=== PATIENT | female | born 1960 | race African-American/Black ===

== ENCOUNTER 2021-01-05 16:28 | Inpatient (IN) | payer MEDICAID ==
[~2021-01-05] VITALS: Ht 165.1 cm; Wt 53.4 kg
--- NOTE | 2021-01-05 16:31 | NUR ---
BIBA FOR PAIN ON LEFT HIP AFTER INJURY WHILE WALKING. PT HAS PAGET'S DISEASE. PAIN 04/21. PT TOOK 1 10MG NORCO AND SOMA 40 MINUTES AGO. PT PLACED ON VITALS MONTITORS. FALL PRECAUTIONS IN PLACE.
[2021-01-05] MEDS ORDERED: ONDANSETRON 2MG/ML, 2ML ONE (16:54)
[2021-01-05] MEDS ORDERED: HYDROmorphone 1 MG/ML, 1ML INJ ONE ×2 (16:54→17:49)
[2021-01-05] MEDS ORDERED: ONDANSETRON 2MG/ML, 2ML IVPush ONE (17:00)
[2021-01-05] MEDS ORDERED: HYDROmorphone 1 MG/ML, 1ML INJ IV ONE ×2 (17:00→18:00)
[2021-01-05] MEDS ORDERED: SODIUM CHLORIDE FLUSH 10ML SYR IVF ONE (17:00)
[2021-01-05 17:27] LABS: BASOPHILS % (AUTO) 1 % (0-1); EOSINOPHILS % (AUTO) 1 % (1-7); LYMPHOCYTES % (AUTO) 21 % (22-44); MEAN CORPUSCULAR HEMOGLOBIN 30.7 pg (27.0-34.8); MEAN PLATELET VOLUME 6.8 fL (7.4-10.4); MONOCYTES % (AUTO) 7 % (2-9); NEUTROPHILS % (AUTO) 70 % (42-75); PLATELET COUNT 341 x10^3/uL (130-400); RED BLOOD COUNT 3.71 x10^6/uL (3.82-5.3); RED CELL DISTRIBUTION WIDTH 13.4 % (9.6-15.2)
[2021-01-05 17:29] LABS: ALBUMIN 3.5 g/dL (3.4-5.0); ANION GAP 7 mmol/L (5-15); CHLORIDE 108 mmol/L (98-107); CREATININE 0.67 mg/dL (0.55-1.02)
--- NOTE | 2021-01-05 17:40 | NUR ---
SHORTS ON PATIENT WERE CUT PRIOR TO ARRIVAL AND NEEDED TO BE COMPLETELY CUT OFF PER RADIOLOGY PT COULD NOT TOLERATE REMOVING SHORTS DOWN OFF THE LEGS. KEESHA FROM XRAY ASSISTED IN REMOVING SHORTS FROM PATIENT BY THIS RN COMPLETING THE PROCESS OF CUTTING HER SHORTS.
[2021-01-05] MEDS ORDERED: ALEN70TA77 PO (18:17)
[2021-01-05] MEDS ORDERED: CARI350T PO (18:17)
[2021-01-05] MEDS ORDERED: IBUP-1223 PO (18:17)
[2021-01-05] MEDS ORDERED: LORA-247 PO (18:17)
[2021-01-05] MEDS ORDERED: HYDR-3248 PO (18:17)
[2021-01-05] MEDS ORDERED: OXYcodone/APAP 10/325MG TABLET ONE (18:43)
--- NOTE | 2021-01-05 18:44 | NUR ---
MEDICATED WITH PERCOCET 10MG PER HOSPITALIST ORDER. MD AT BEDSIDE FOR EVAL.
--- NOTE | 2021-01-05 18:55 | NUR ---
REPORT GIVEN TO [facility] VILLALOBOS.
[2021-01-05] MEDS ORDERED: DOCUSATE 100 MG CAPSULE PO PRN (19:00)
[2021-01-05] MEDS ORDERED: ONDANSETRON 2MG/ML, 2ML IVPush PRN (19:00)
[2021-01-05] MEDS ORDERED: OXYcodone/APAP 10/325MG TABLET PO ONE (19:00)
[2021-01-05] MEDS ORDERED: BACLOFEN 10 MG TABLET PO PRN (19:00)
[2021-01-05] MEDS ORDERED: ENALAPRILAT 1.25 MG/ML, 2ML IVPush PRN (19:00)
[2021-01-05] MEDS ORDERED: ACETAMINOPHEN 325 MG TABLET PO PRN (19:00)
[2021-01-05] MEDS ORDERED: GUAIFENESIN/DM 200-20MG, 10ML UDC PO PRN (19:00)
[2021-01-05] MEDS ORDERED: ZOLPIDEM 5MG TABLET PO PRN (19:00)
[2021-01-05 19:28] VITALS: BP 167/100
[2021-01-05] MEDS ORDERED: DIAZEPAM 5 MG TABLET PO PRN (20:00)
[2021-01-05] MEDS: HYDROcodone/APAP 10/325 MG TABLET PO SCH (20:46)
[2021-01-05] MEDS: FAMOTIDINE 20 MG TABLET PO SCH (20:46)
[2021-01-05] MEDS: HYDROmorphone 2 MG/ML, 1ML IVPush PRN ×2 (20:46→23:50)
[2021-01-05] MEDS: CARISOPRODOL 350 MG TABLET PO SCH (20:46)
[2021-01-05] MEDS: LACTATED RINGERS 1,000 ML IV SCH (20:56)
[2021-01-06 02:42] VITALS: BP 126/80
[2021-01-06] MEDS: HYDROmorphone 2 MG/ML, 1ML IVPush PRN (02:57)
[2021-01-06] MEDS: OXYcodone IR 5MG TABLET PO PRN (02:58)
[2021-01-06 05:45] LABS: BASOPHILS % (AUTO) 0 % (0-1); EOSINOPHILS % (AUTO) 1 % (1-7); LYMPHOCYTES % (AUTO) 28 % (22-44); MEAN CORPUSCULAR HEMOGLOBIN 30.6 pg (27.0-34.8); MEAN CORPUSCULAR HGB CONC 33.9 g/dL (32.4-35.8); MEAN PLATELET VOLUME 7.4 fL (7.4-10.4); MONOCYTES % (AUTO) 8 % (2-9); NEUTROPHILS % (AUTO) 63 % (42-75); PLATELET COUNT 334 x10^3/uL (130-400); RED BLOOD COUNT 3.73 x10^6/uL (3.82-5.3); RED CELL DISTRIBUTION WIDTH 13.8 % (9.6-15.2)
[2021-01-06 05:50] LABS: PROTHROMBIN TIME 10.7 Seconds (9.6-11.5)
[2021-01-06 05:52] LABS: CALCIUM 8.6 mg/dL (8.5-10.1); CHLORIDE 109 mmol/L (98-107)
[2021-01-06] MEDS: DIAZEPAM 5 MG/ML, 2ML IV PRN (06:06)
[2021-01-06 06:22] LABS: % IRON SATURATION 38 % (20-55); ANION GAP 6 mmol/L (5-15); CREATININE 0.56 mg/dL (0.55-1.02); IRON LEVEL 88 mcg/dL (50-170); TOTAL IRON BINDING CAPACITY 233 mcg/dL (250-450)
[2021-01-06] MEDS: HYDROcodone/APAP 10/325 MG TABLET PO SCH ×4 (07:21→21:39)
[2021-01-06] MEDS: IBUPROFEN 800 MG TABLET PO SCH (07:21)
[2021-01-06] MEDS: LORATADINE 10 MG TABLET PO SCH (07:22)
[2021-01-06] MEDS: FAMOTIDINE 20 MG TABLET PO SCH ×2 (07:22→21:39)
[2021-01-06] MEDS: CARISOPRODOL 350 MG TABLET PO SCH ×3 (07:22→21:38)
[2021-01-06 08:37] VITALS: BP 108/65
[2021-01-06] MEDS: LACTATED RINGERS 1,000 ML IV SCH (10:58)
[2021-01-06] MEDS ORDERED: MIDAZOLAM 1 MG/ML, 2ML ONE (12:16)
[2021-01-06] MEDS ORDERED: FENTANYL PF 250 MCG/5ML ONE (12:17)
[2021-01-06] MEDS ORDERED: KETAMINE 50 MG/ML, 10ML ONE (12:40)
[2021-01-06] MEDS ORDERED: HALOPERIDOL 5 MG/ML IV PRN (13:00)
[2021-01-06] MEDS ORDERED: FENTANYL PF 100 MCG/2ML IV PRN (13:00)
[2021-01-06] MEDS ORDERED: ONDANSETRON 2MG/ML, 2ML IVPush PRN (13:00)
[2021-01-06] MEDS ORDERED: LABETALOL 5MG/ML, 20ML IV PRN (13:00)
[2021-01-06] MEDS ORDERED: EPHEDRINE 50 MG/ML, 1ML IM PRN (13:00)
[2021-01-06] MEDS ORDERED: MEPERIDINE/PF 25MG/0.5ML IVPush PRN (13:00)
[2021-01-06] MEDS ORDERED: OXYcodone 5 MG/5 ML ORAL.SOL UDC PO PRN (13:00)
[2021-01-06] MEDS ORDERED: hydrALAzine 20 MG/ML, 1ML IV PRN (13:00)
[2021-01-06] MEDS ORDERED: LORazepam 2 MG/ML, 1ML IVPush PRN (13:00)
[2021-01-06] MEDS ORDERED: ACETAMINOPHEN 325 MG TABLET PO PRN (13:00)
[2021-01-06] MEDS ORDERED: PROMETHAZINE 25 MG/ML, 1ML IVPush PRN (13:00)
[2021-01-06] MEDS ORDERED: HYDROmorphone 1 MG/ML, 1ML INJ IVPush PRN (13:00)
[2021-01-06] MEDS ORDERED: EPHEDRINE 50 MG/ML, 1ML IVPush PRN (13:00)
[2021-01-06] MEDS ORDERED: METHOCARBAMOL 1,000 MG in DEXTROSE 5% 100 ML IV PRN (13:00)
[2021-01-06] MEDS ORDERED: KETOROLAC 30 MG/1 ML ONE (13:13)
[2021-01-06] MEDS ORDERED: CEFAZOLIN 1,000 MG ONE (13:13)
[2021-01-06] MEDS ORDERED: SUCCINYLCHOLINE 20 MG/ML, 10ML ONE ×2 (13:13)
[2021-01-06] MEDS ORDERED: PROPOFOL 10 MG/ML, 20ML ONE (13:13)
[2021-01-06] MEDS ORDERED: DEXAMETHASONE 4 MG/ML, 1ML ONE (13:13)
[2021-01-06] MEDS ORDERED: ONDANSETRON 2MG/ML, 2ML ONE (13:13)
[2021-01-06] MEDS ORDERED: MEPERIDINE/PF 100 MG/ML ONE (14:31)
[2021-01-06] MEDS ORDERED: ALENDRONATE 70 MG TABLET PO SCH (15:00)
[2021-01-06] MEDS ORDERED: FENTANYL PF 100 MCG/2ML ONE (15:02)
[2021-01-06] MEDS ORDERED: ACETAMINOPHEN 650 MG/20.3 ML UDC ONE (15:13)
[2021-01-06] MEDS ORDERED: OXYcodone 5 MG/5 ML ORAL.SOL UDC ONE (15:13)
[2021-01-06 18:49] VITALS: BP 99/69
[2021-01-06] MEDS: CEFAZOLIN PMX 1GM/50ML 50 ML IV SCH (21:54)
[2021-01-07 01:24] VITALS: BP 102/63
[2021-01-07] MEDS: LACTATED RINGERS 1,000 ML IV SCH ×2 (01:47→12:20)
[2021-01-07 05:16] LABS: BASOPHILS % (AUTO) 0 % (0-1); EOSINOPHILS % (AUTO) 0 % (1-7); LYMPHOCYTES % (AUTO) 19 % (22-44); MEAN CORPUSCULAR HEMOGLOBIN 31.1 pg (27.0-34.8); MEAN CORPUSCULAR HGB CONC 34.4 g/dL (32.4-35.8); MEAN PLATELET VOLUME 7.2 fL (7.4-10.4); MONOCYTES % (AUTO) 11 % (2-9); NEUTROPHILS % (AUTO) 71 % (42-75); PLATELET COUNT 271 x10^3/uL (130-400); RED BLOOD COUNT 3.17 x10^6/uL (3.82-5.3); RED CELL DISTRIBUTION WIDTH 13.5 % (9.6-15.2)
[2021-01-07 05:18] LABS: ANION GAP 4 mmol/L (5-15); CALCIUM 8.3 mg/dL (8.5-10.1); CHLORIDE 110 mmol/L (98-107)
[2021-01-07 05:19] LABS: CREATININE 0.54 mg/dL (0.55-1.02)
[2021-01-07] MEDS: CEFAZOLIN PMX 1GM/50ML 50 ML IV SCH (05:54)
[2021-01-07] MEDS: HYDROcodone/APAP 10/325 MG TABLET PO SCH ×4 (05:54→21:21)
[2021-01-07] MEDS: ENOXAPARIN 40 MG/0.4 ML SQ SCH (05:54)
[2021-01-07 07:20] VITALS: BP 109/69
[2021-01-07] MEDS ORDERED: METHOCARBAMOL 750 MG TABLET PO PRN (08:00)
[2021-01-07] MEDS: IBUPROFEN 800 MG TABLET PO SCH (08:14)
[2021-01-07] MEDS: CARISOPRODOL 350 MG TABLET PO SCH ×3 (08:14→21:21)
[2021-01-07] MEDS: FAMOTIDINE 20 MG TABLET PO SCH ×2 (08:14→21:21)
[2021-01-07] MEDS: LORATADINE 10 MG TABLET PO SCH (08:14)
[2021-01-07] MEDS: OXYcodone IR 5MG TABLET PO PRN ×2 (08:21→17:16)
[2021-01-07 13:30] VITALS: BP 108/70
[2021-01-07] MEDS: DIAZEPAM 5 MG/ML, 2ML IV PRN (15:52)
[2021-01-07] MEDS ORDERED: MAGNESIUM HYDROXIDE 8%, 30ML UDC ONE (17:14)
[2021-01-07] MEDS ORDERED: MAGNESIUM HYDROXIDE 8%, 30ML UDC PO PRN (17:30)
[2021-01-07 18:40] VITALS: BP 94/59
[2021-01-08 01:45] VITALS: BP 95/61
[2021-01-08] MEDS: LACTATED RINGERS 1,000 ML IV SCH ×2 (05:10→18:30)
[2021-01-08] MEDS: ENOXAPARIN 40 MG/0.4 ML SQ SCH (05:39)
[2021-01-08] MEDS: HYDROcodone/APAP 10/325 MG TABLET PO SCH ×4 (05:40→21:01)
[2021-01-08] MEDS: OXYcodone IR 5MG TABLET PO PRN ×3 (06:45→17:39)
[2021-01-08 07:15] VITALS: BP 94/62
[2021-01-08] MEDS: FAMOTIDINE 20 MG TABLET PO SCH ×2 (07:35→21:01)
[2021-01-08] MEDS: LORATADINE 10 MG TABLET PO SCH (07:35)
[2021-01-08] MEDS: CARISOPRODOL 350 MG TABLET PO SCH ×3 (07:35→21:01)
[2021-01-08] MEDS: IBUPROFEN 800 MG TABLET PO SCH (10:42)
[2021-01-08 14:30] VITALS: BP 95/61
[2021-01-08 18:54] VITALS: BP 87/55
[2021-01-08 21:03] VITALS: BP 98/63
[2021-01-09 02:20] VITALS: BP 97/66
[2021-01-09] MEDS: OXYcodone IR 5MG TABLET PO PRN ×3 (04:45→14:40)
[2021-01-09] MEDS: ENOXAPARIN 40 MG/0.4 ML SQ SCH (06:41)
[2021-01-09] MEDS: HYDROcodone/APAP 10/325 MG TABLET PO SCH ×3 (06:41→15:57)
[2021-01-09 07:03] VITALS: BP 97/64
[2021-01-09] MEDS: LACTATED RINGERS 1,000 ML IV SCH (07:50)
[2021-01-09] MEDS: FAMOTIDINE 20 MG TABLET PO SCH (08:15)
[2021-01-09] MEDS: IBUPROFEN 800 MG TABLET PO SCH (08:15)
[2021-01-09] MEDS: LORATADINE 10 MG TABLET PO SCH (08:15)
[2021-01-09] MEDS: CARISOPRODOL 350 MG TABLET PO SCH ×2 (08:15→15:56)
[2021-01-09] MEDS ORDERED: OXYC5TAB98 PO (09:36)
[2021-01-09] MEDS ORDERED: ASPI81TA45 PO (09:36)
[2021-01-09 12:18] VITALS: BP 98/60
== END 2021-01-09 17:30 | disposition home or self-care (01) | DRG 482 ==
LOC: ED 19:18 → 4NE 19:23
PROVIDERS: ADMIT Internal Medicine; ATTEND Internal Medicine
PROC: 0QS706Z Reposition Left Upper Femur with Intramedullary Internal Fixation Device, Open Approach (ICD-10-PCS; principal; 2021-01-06 12:30)
DX: S72.22XA Displaced subtrochanteric fracture of left femur, initial encounter for closed fracture (principal); S72.322A Displaced transverse fracture of shaft of left femur, initial encounter for closed fracture; D64.9 Anemia, unspecified; G89.29 Other chronic pain; F17.200 Nicotine dependence, unspecified, uncomplicated; E87.8 Other disorders of electrolyte and fluid balance, not elsewhere classified; M88.9 Osteitis deformans of unspecified bone; Z82.49 Family history of ischemic heart disease and other diseases of the circulatory system; M54.9 Dorsalgia, unspecified; Z20.822 Contact with and (suspected) exposure to COVID-19; Z88.0 Allergy status to penicillin; W22.8XXA Striking against or struck by other objects, initial encounter; Y93.01 Activity, walking, marching and hiking; Y92.89 Other specified places as the place of occurrence of the external cause; Y99.8 Other external cause status
CPT/HCPCS: 36415; 71045; 72170; 76000; 80048; 82040; 82607; 82728; 83540; 83550; 85025; 85610; 87635; 88304; 88311; 93005; 96374; 96375; 96376; 99285; C1713; G0378; J0690; J1100; J1170; J1650; J1885; J2250; J2405; J2704; J3010; J3360; J0330; J2175; J7120